=== PATIENT | female | born 1935 | race Two or more races ===

== ENCOUNTER 2021-08-19 18:36 | Emergency (ER) | payer OTHER ==
[~2021-08-19] VITALS: Ht 149.9 cm; Wt 43.5 kg
[2021-08-19] MEDS ORDERED: ZESTRIL20 MG PO (19:20)
[2021-08-19] MEDS ORDERED: ATACAND32 MG PO (19:20)
[2021-08-20] MEDS ORDERED: ZYNCOF 20-400120 ML PO (03:57)
[2021-08-20] MEDS ORDERED: ALBUTEROL2.5 MG/3 M IH (03:57)
== END 2021-08-20 04:11 ==
LOC: ER 18:36
DX: U07.1 COVID-19 (principal); R53.1 Weakness; E86.0 Dehydration; C22.7 Other specified carcinomas of liver

== ENCOUNTER 2021-08-25 10:06 | Outpatient (CLI) | payer OTHER ==
[~2021-08-25 10:06] MED LIST: ALBUTEROL2.5 MG/3 M IH; ATACAND32 MG PO; ZESTRIL20 MG PO; ZYNCOF 20-400120 ML PO
== END 2021-08-25 10:45 | disposition home or self-care (01) ==
LOC: ASH CLINIC 10:06
PROVIDERS: ATTEND General Practice
DX: U07.1 COVID-19 (principal)

== ENCOUNTER 2021-12-01 02:49 | Emergency (ER) | payer OTHER ==
[~2021-12-01] VITALS: Ht 142.2 cm; Wt 43.5 kg
[2021-12-01] MEDS ORDERED: LISINOPRIL30 MG PO (02:57)
[2021-12-01] MEDS ORDERED: XARELTO15 M1 PO (02:57)
[2021-12-01] MEDS ORDERED: CARDIZEM CD180 M1 PO (02:57)
== END 2021-12-01 05:55 | disposition home or self-care (01) ==
LOC: ER 02:49
DX: S00.83XA Contusion of other part of head, initial encounter (principal); W06.XXXA Fall from bed, initial encounter; Y93.9 Activity, unspecified; Y92.013 Bedroom of single-family (private) house as the place of occurrence of the external cause; G30.9 Alzheimer's disease, unspecified; F02.80 Dementia in other diseases classified elsewhere, unspecified severity, without behavioral disturbance, psychotic disturbance, mood disturbance, and anxiety; E78.00 Pure hypercholesterolemia, unspecified; I10 Essential (primary) hypertension; S42.031A Displaced fracture of lateral end of right clavicle, initial encounter for closed fracture

== ENCOUNTER 2021-12-11 14:58 | Emergency (ER) | payer OTHER ==
[~2021-12-11] VITALS: Ht 142.2 cm; Wt 43.5 kg
[~2021-12-11 14:58] MED LIST changes: +CARDIZEM CD180 M1 PO; +LISINOPRIL30 MG PO; +XARELTO15 M1 PO
[2021-12-11] MEDS ORDERED: PANTOPRAZOLE SO40 MG PO (15:23)
[2021-12-11] MEDS ORDERED: SIMVASTATIN20 MG PO (15:23)
== END 2021-12-11 19:13 | disposition home or self-care (01) ==
LOC: ER 14:58
DX: S29.9XXA Unspecified injury of thorax, initial encounter (principal); W19.XXXA Unspecified fall, initial encounter; Z91.81 History of falling; Y93.01 Activity, walking, marching and hiking; Y92.009 Unspecified place in unspecified non-institutional (private) residence as the place of occurrence of the external cause; M25.511 Pain in right shoulder; I10 Essential (primary) hypertension; Z20.822 Contact with and (suspected) exposure to COVID-19; I51.7 Cardiomegaly; I70.209 Unspecified atherosclerosis of native arteries of extremities, unspecified extremity; I25.10 Atherosclerotic heart disease of native coronary artery without angina pectoris

== ENCOUNTER 2021-12-17 12:25 | Emergency (ER) | payer OTHER ==
[~2021-12-17] VITALS: Ht 162.6 cm; Wt 49.9 kg
[~2021-12-17 12:25] MED LIST changes: +PANTOPRAZOLE SO40 MG PO; +SIMVASTATIN20 MG PO
== END 2021-12-17 17:24 | disposition home or self-care (01) ==
LOC: ER 12:25
DX: M79.672 Pain in left foot (principal); I70.203 Unspecified atherosclerosis of native arteries of extremities, bilateral legs

== ENCOUNTER 2022-01-09 00:03 | Inpatient (IN) | payer OTHER ==
[~2022-01-09] VITALS: Ht 152.4 cm; Wt 109.8 kg
[~2022-01-09 00:03] MED LIST changes: +PERCOCET 5-3251 EACH PO
[2022-01-19] MEDS ORDERED: GABAPENTIN100 M2 (16:05)
[2022-01-19] MEDS ORDERED: ATORVASTATIN CA40 MG (16:05)
[2022-01-19] MEDS ORDERED: CLOPIDOGREL BIS75 MG (16:05)
[2022-01-19] MEDS ORDERED: SERTRALINE HCL25 MG (16:05)
[2022-01-19] MEDS ORDERED: ST. JOSEPH ASPI81 M2 (16:05)
[2022-01-19] MEDS ORDERED: DILTIAZEM 24HR180 MG (16:06)
[2022-01-19] MEDS ORDERED: SIMVASTATIN20 MG (16:06)
[2022-01-19] MEDS ORDERED: PANTOPRAZOLE SO40 MG (16:06)
[2022-01-20] MEDS ORDERED: DILTIAZEM 24HR180 MG PO (15:35)
[2022-01-20] MEDS ORDERED: BENZONATATE100 MG PO (15:35)
[2022-01-20] MEDS ORDERED: LISINOPRIL20 MG PO (15:35)
[2022-01-20] MEDS ORDERED: LUBRIDERM ADVA177 ML TOP (15:35)
[2022-01-20] MEDS ORDERED: APETIGEN P12.5 MG/15 PO (15:35)
[2022-01-20] MEDS ORDERED: GABAPENTIN250 MG/5 M PO (15:35)
[2022-01-20] MEDS ORDERED: FAMOTIDINE20 MG PO (15:35)
[2022-01-20] MEDS ORDERED: TUSSIN DM LIQU118 ML PO (15:35)
[2022-01-20] MEDS ORDERED: CHOLESTYRAMINE P4 GM PO (15:35)
[2022-01-20] MEDS ORDERED: XARELTO15 MG PO (15:35)
== END 2022-01-20 20:37 | disposition home or self-care (01) | DRG 444 ==
LOC: ER 00:03 → MEDI 22:53
PROVIDERS: ADMIT Internal Medicine; ATTEND Internal Medicine
PROC: BW2110Z Computerized Tomography (CT Scan) of Abdomen and Pelvis using Low Osmolar Contrast, Unenhanced and Enhanced (ICD-10-PCS; principal; 2022-01-09)
PROC: 3E0F7SF Introduction of Other Gas into Respiratory Tract, Via Natural or Artificial Opening (ICD-10-PCS; 2022-01-09)
PROC: B24BYZZ Ultrasonography of Heart with Aorta using Other Contrast (ICD-10-PCS; 2022-01-10)
PROC: 4A12X4Z Monitoring of Cardiac Electrical Activity, External Approach (ICD-10-PCS; 2022-01-10)
DX: K83.09 Other cholangitis (principal); J18.0 Bronchopneumonia, unspecified organism; K83.1 Obstruction of bile duct; C22.9 Malignant neoplasm of liver, not specified as primary or secondary; R78.81 Bacteremia; B96.20 Unspecified Escherichia coli [E. coli] as the cause of diseases classified elsewhere; E11.9 Type 2 diabetes mellitus without complications; I11.0 Hypertensive heart disease with heart failure; I50.9 Heart failure, unspecified; G30.9 Alzheimer's disease, unspecified; F02.80 Dementia in other diseases classified elsewhere, unspecified severity, without behavioral disturbance, psychotic disturbance, mood disturbance, and anxiety; R53.81 Other malaise